=== PATIENT | female | born 1955 | race Caucasian/White ===

== ENCOUNTER → 2016-12-10 | Day surgery (SDC) | payer MEDICARE, BC ==
[~2016-12-10] MED LIST: EXCEDRIN EXTRA1 TAB PO; EXCEDRIN MIGRAI1 TA2 PO; FLEXERIL10 MG PO; FLONASE 0.05% N16 GM; FLOVENT DI50 MCG/DIS IH; FLOVENT HFA10.6 G1 IH; GABAPENTIN600 MG PO; LORTAB 10-3251 EACH PO; METHOCARBAMOL500 MG PO; NORCO 10-325 TA1 TAB PO; NUPRIN200 M1 PO; PSEUDOEPHEDRIN120 M1 PO; RANITIDINE HCL150 M1 PO; ROBAXIN500 MG PO; SUDAFED 12 HOU120 M1 PO; VITAMIN C1000 M2 PO; ZANAFLEX4 M1 PO
--- NOTE | ~2016-12-10 | OR ---
Unit #: [id number] #: [id number] Patient: ADELINE WOODS [id number] [address] [place], [place] [address] [id number] O MR#: [id number] NAME: ADELINE WOODS ROOM: Date of Procedure: 12/10/2016 Admission Date: 12/10/2016 Surgeon: Maxx Patterson M.D. : 1955 Attending Physician: Maxx Patterson M.D. Primary Care Physician: Yunier Hurtado M.D. OPERATIVE REPORT PREOPERATIVE DIAGNOSES Back pain, radiculopathy, degenerative disk disease, spondylolisthesis. POSTOPERATIVE DIAGNOSES Back pain, radiculopathy, degenerative disk disease, spondylolisthesis. PROCEDURE PERFORMED Lumbar epidural steroid injection with intravenous sedation and fluoroscopic guidance for needle localization. INDICATIONS FOR PROCEDURE The patient is a 61-year-old female with return of back and left greater than right lower extremity pain due to nonsurgical degenerative disk disease and spondylolisthesis, most significant at L5-S1 level. The patient was treated medically with p.r.n. epidural steroid injections, last injection was done 3-1/2 months ago. She did well for about 3 months. She had resurgence of the symptoms, so plan is to repeat injection as planned in the past. DESCRIPTION OF PROCEDURE The patient was placed in a seated position. Standard monitors were applied. 2 mg of Versed was given for sedation and anxiolysis, which were adequate. Vital signs remained stable. Sterile prep and drape then of the lumbar area was performed. The skin then at the L4-L5 level was localized with 1% lidocaine. An 18-gauge Hustead needle was then advanced via loss of resistance technique and fluoroscopic guidance in toward the epidural space. The patient did not complain of any pain or paresthesia during needle advancement. After confirming proper positioning with fluoroscopy and radiographic contrast, 80 mg of Depo-Medrol and 4 mL of 0.125% bupivacaine were deposited. The patient tolerated the procedure otherwise well and was discharged to the recovery room in stable condition. Dictated by... Joann Banuelos/joey TD: 12/11/2016 06:01 JOB #: [id number] Unit #: [id number] #: [id number] Patient: CHUCKLAINE DAHLESPINOZA Ordoñez OPERATIVE REPORT Page 1 of 1 X Maxx Patterson MD X PROCEDURE OPERATIVE NOTE
== END | disposition home or self-care (01) ==
LOC: CCSC 09:09
DX: M43.16 Spondylolisthesis, lumbar region (principal)
CPT/HCPCS: J1040; J2250

== ENCOUNTER 2016-12-27 19:12 | Emergency (ER) | payer MEDICARE ==
--- NOTE | ~2016-12-27 | CR173 ---
[facility] A Service of [facility] & [facility] RADIOLOGY TEXT RESULTS PATIENT: ADELINE WOODS LOCATION: CFTX : 55 UNIT #: [id number] AGE: [address]: ALEJANDRO LOMBARDO APRN SEX: F ORDER DR: [id number] [facility] [address] [place], [place] [address] [id number] E MR#: [id number] Acc #: [id number] NAME: ADELINE WODOS. : 1955 SEX: F STUDY DATE/TIME: 12/27/2016 20:47 UNIT: [facility] ROOM: STUDY DESCRIPTION: CR Knee 3 Views Rt Attending Physician: Alejandro Lombardo Aprn Ordering Physician: Alejandro Lombardo Aprn Primary Care Physician: Yunier Hurtado M.D. MEDICAL IMAGING REPORT This report is preliminary unless electronic signature is present EXAM Right knee 3 views. HISTORY Knee pain after fall today. FINDINGS 3 views of the right knee demonstrate satisfactory bone alignment. No fracture, joint space narrowing or effusion. Normal mineralization. IMPRESSION Negative. Dictated by... Raudel Khan M.D. THIS IS AN ELECTRONICALLY VERIFIED REPORT Raudel Khan M.D. at 12/28/2016 12:59 PM DFL/guillermo TD: 12/28/2016 09:16 JOB #: [id number] MEDICAL IMAGING REPORT Page 1 of 1 COPY
--- NOTE | ~2016-12-27 | CR172 ---
[facility] A Service of [facility] & [facility] RADIOLOGY TEXT RESULTS PATIENT: ADELINE WOODS LOCATION: CFTX : 55 UNIT #: [id number] AGE: [address]: ALEJANDRO LOMBARDO APRN SEX: F ORDER DR: [id number] [facility] [address] [place], [place] [address] [id number] E MR#: [id number] Acc #: [id number] NAME: ADELINE WOODS. : 1955 SEX: F STUDY DATE/TIME: 12/27/2016 20:47 UNIT: [facility] ROOM: STUDY DESCRIPTION: CR Knee 3 Views Lt Attending Physician: Alejandro Lombardo Aprn Ordering Physician: Alejandro Lombardo Aprn Primary Care Physician: Yunier Hurtado M.D. MEDICAL IMAGING REPORT This report is preliminary unless electronic signature is present EXAM Left knee, 3 views. HISTORY Knee pain after a fall today. FINDINGS 3 views f the left knee demonstrate normal bone alignment. No fracture, joint space narrowing, or effusion. Minimal hypertrophic changes along the medial joint line. Small areas of benign cortical thickening along the posterior margins of the proximal tibial and fibular metaphysis. IMPRESSION No acute findings. Dictated by... Raudel Khan M.D. THIS IS AN ELECTRONICALLY VERIFIED REPORT Raudel Khan M.D. at 12/28/2016 12:59 PM DFL/lluvia TD: 12/28/2016 09:17 JOB #: [id number] MEDICAL IMAGING REPORT Page 1 of 1 COPY
--- NOTE | ~2016-12-27 | CR181 ---
[facility] A Service of [facility] & [facility] RADIOLOGY TEXT RESULTS PATIENT: ADELINE WOODS LOCATION: CFTX : 55 UNIT #: [id number] AGE: [address]: ALEJANDRO LOMBARDO APRN SEX: F ORDER DR: [id number] [facility] [address] [place], [place] [address] [id number] E MR#: [id number] Acc #: [id number] NAME: ADELINE WOODS. : 1955 SEX: F STUDY DATE/TIME: 12/27/2016 20:39 UNIT: [facility] ROOM: STUDY DESCRIPTION: CR Lumbar Spine 2 or 3 Views Attending Physician: Alejandro Lombardo Aprn Ordering Physician: Alejandro Lombardo Aprn Primary Care Physician: Yunier Hurtado M.D. MEDICAL IMAGING REPORT This report is preliminary unless electronic signature is present EXAM Lumbar spine 3 views HISTORY Back pain after fall today. FINDINGS 3 views lumbar spine demonstrate moderately severe degenerative disc space narrowing at L5-S1. No disc space narrowing at the remainder of the lumbar levels. Mild degenerative facet arthropathy in the lower lumbar spine. No fracture. No acute findings. IMPRESSION No acute finding. Moderately severe degenerative disc space narrowing at L5-S1. Dictated by... Raudel Khan M.D. THIS IS AN ELECTRONICALLY VERIFIED REPORT Raudel Khan M.D. at 12/28/2016 12:59 PM DFL/mery TD: 12/28/2016 09:21 JOB #: [id number] MEDICAL IMAGING REPORT Page 1 of 1 COPY
--- NOTE | ~2016-12-27 | CR141 ---
[facility] A Service of [facility] & [facility] RADIOLOGY TEXT RESULTS PATIENT: ADELINE WOODS LOCATION: CFTX : 55 UNIT #: [id number] AGE: [address]: ALEJANDRO LOMBARDO APRN SEX: F ORDER DR: [id number] [facility] [address] [place], [place] [address] [id number] E MR#: [id number] Acc #: [id number] NAME: ADELINE WOODS. : 1955 SEX: F STUDY DATE/TIME: 12/27/2016 20:37 UNIT: [facility] ROOM: STUDY DESCRIPTION: CR Hand Min 3 Views Lt Attending Physician: Alejandro Lombardo Aprn Ordering Physician: Alejandro Lombardo Aprn Primary Care Physician: Yunier Hurtado M.D. MEDICAL IMAGING REPORT This report is preliminary unless electronic signature is present EXAM Left hand 3 views. HISTORY Hand pain after fall today. FINDINGS 3 views of the left hand demonstrate satisfactory bone alignment. Mild degenerative changes at the first CMC joint. Small degenerative cysts in the distal scaphoid. No fracture. No dislocation. No opaque soft tissue foreign body. IMPRESSION No acute findings. Dictated by... Raudel Khan M.D. THIS IS AN ELECTRONICALLY VERIFIED REPORT Raudel Khan M.D. at 12/28/2016 12:59 PM DFL/guillermo TD: 12/28/2016 09:14 JOB #: [id number] MEDICAL IMAGING REPORT Page 1 of 1 COPY
--- NOTE | ~2016-12-27 | CR142 ---
[facility] A Service of [facility] & [facility] RADIOLOGY TEXT RESULTS PATIENT: ADELINE WOODS LOCATION: CFTX : 55 UNIT #: [id number] AGE: [address]: ALEJANDRO LOMBARDO APRN SEX: F ORDER DR: [id number] [facility] [address] [place], [place] [address] [id number] E MR#: [id number] Acc #: [id number] NAME: ADELINE WOODS. : 1955 SEX: F STUDY DATE/TIME: 12/27/2016 20:35 UNIT: [facility] ROOM: STUDY DESCRIPTION: CR Hand Min 3 Views Rt Attending Physician: Alejandro Lombardo Aprn Ordering Physician: Alejandro Lombardo Aprn Primary Care Physician: Yunier Hurtado M.D. MEDICAL IMAGING REPORT This report is preliminary unless electronic signature is present EXAM Right hand 3 views HISTORY Hand pain after fall today. Hand injury. FINDINGS 3 views of the right hand demonstrate satisfactory bone alignment. No fracture or dislocation. Degenerative cysts in the distal scaphoid. Well-circumscribed 3 mm lucent lesion in the fifth metacarpal head. Additional mild degenerative changes in the IP joints. IMPRESSION No fracture. No acute findings. Dictated by... Raudel Khan M.D. THIS IS AN ELECTRONICALLY VERIFIED REPORT Raudel Khan M.D. at 12/28/2016 12:59 PM DFL/wicho TD: 12/28/2016 09:21 JOB #: [id number] MEDICAL IMAGING REPORT Page 1 of 1 COPY
== END 2016-12-27 22:00 | disposition home or self-care (01) ==
LOC: CED 19:12 → CFTX 19:12
DX: S33.5XXA Sprain of ligaments of lumbar spine, initial encounter (principal); S60.221A Contusion of right hand, initial encounter; S60.222A Contusion of left hand, initial encounter; S80.01XA Contusion of right knee, initial encounter; S80.02XA Contusion of left knee, initial encounter; Z23 Encounter for immunization; F17.210 Nicotine dependence, cigarettes, uncomplicated; Z79.891 Long term (current) use of opiate analgesic; Z79.899 Other long term (current) drug therapy; Z88.0 Allergy status to penicillin; W01.198A Fall on same level from slipping, tripping and stumbling with subsequent striking against other object, initial encounter; Y92.512 Supermarket, store or market as the place of occurrence of the external cause
CPT/HCPCS: 72100; 73130; 73562; 90471; 90715; 99284